=== PATIENT | male | born 1990 | race African-American/Black ===

== ENCOUNTER 2017-04-09 07:32 | Emergency (ER) | payer SELFPAY ==
[~2017-04-09] VITALS: Ht 185.4 cm; Wt 106.8 kg
[2017-04-09 07:37] VITALS: BP 161/95; PULSE 76; TEMP 97.8
[2017-04-09] MEDS ORDERED: PEN-VEE K500 MG PO (08:14)
[2017-04-09] MEDS ORDERED: NORCO 325 MG-51 TAB PO (08:14)
== END 2017-04-09 08:20 | disposition home or self-care (01) ==
LOC: COL.ER 07:32
DX: K08.89 Other specified disorders of teeth and supporting structures (principal); F17.210 Nicotine dependence, cigarettes, uncomplicated; H92.02 Otalgia, left ear; R05 Cough